=== PATIENT | female | born 1985 | race Caucasian/White ===

== ENCOUNTER 2017-07-25 20:09 | Emergency (ER) | payer MEDICAID, SELFPAY ==
[2017-07-25 20:10] VITALS: BP 120/83; PULSE 81; RESP 14; TEMP 36.9; O2SAT 99; BMI 26.4
--- NOTE | 2017-07-25 22:33 | ED.VISSUMM ---
- ER Visit Summary Date of Service: 07/25/17 Chief Complaint: Finger infection History of Present Illness: The patient is a 32 F with a left ring finger infection that started 2 days ago. Patient had a hangnail and was biting her nails. She tried to pop the area of infection, but nothing seems to help. No history of diabetes or immune compromise. No other medical issues. Physical Examination: Signs unremarkable. Left ring finger shows induration and swelling over the ulnar side of the nailbed. No other pertinent findings. Test Results: None indicated Emergency Department Course and Treatment: Consistent with paronychia. Digital block was performed. I&D performed. Patient placed on Bactrim. Follow-up with primary care. Return for new or worsening issues. Treatment Plan: As above Disposition: Discharged Impression: 1. Paronychia left ring finger This note was generated with [employer] dictation software. It may contain incorrect words, spelling, and punctuation that were not noted in review of the chart prior to signing ED Disposition - Plan for ED Patient: Chief Complaint: Upper Extremity Injury Referrals: Nickie Scherer MD [Primary Care Provider] -
--- NOTE | 2017-07-25 22:34 | ED.DEP ---
ED Disposition - Plan for ED Patient: Chief Complaint: Upper Extremity Injury Instructions: ED Fingernail Infec Prescriptions: Smz/Tmp Ds [Bactrim Ds] 1 tab PO BID #14 tab Referrals: Nickie Scherer MD [Primary Care Provider] -
[2017-07-25] MEDS: Smz/Tmp Ds Tablet 1 TABLET PO (23:02)
[2017-07-25 23:05] VITALS: RESP 18
== END 2017-07-25 23:06 | disposition home or self-care (01) ==
LOC: ED 22:28
PROVIDERS: Emergency Provider Emergency Medicine; Family Provider Internal Medicine; PCP Internal Medicine
DX: L03.012 Cellulitis of left finger (principal); Z72.0 Tobacco use
CPT/HCPCS: 10060; 99283

== ENCOUNTER 2017-12-16 10:54 | Emergency (ER) | payer MEDICAID, SELFPAY ==
[2017-12-16 10:55] VITALS: BP 101/67; PULSE 116; RESP 16; TEMP 36; O2SAT 100; BMI 22.8
--- NOTE | 2017-12-16 11:09 | ED.VISSUMM ---
- ER Visit Summary Date of Service: 12/16/17 Chief Complaint: Nausea and vomiting History of Present Illness: The patient is a 32 F who woke during the night 4 days ago with nausea, vomiting, and diarrhea. Her last episode of vomiting was on the . Patient still has body aches and nausea. Patient has been able to drink water. Today she feels lightheaded when she stands. She is complaining of generalized body aches. She has not had nausea or vomiting. She denies anyone else at home being ill with similar. Patient has had prior cholecystectomy secondary to gallstone pancreatitis. Physical Examination: Blood pressure is 101/67, temperature 96.8, heart rate 116, respiratory rate 16, pulse ox 100% on room air. Patient is lying in bed. She appears ill but no acute distress. Heart is tachycardic and regular. Lung sounds are clear. Abdomen is soft with no focal tenderness. Hypoactive bowel sounds are present. Test Results: CBC is unremarkable. Chemistry studies normal. LFTs showed total bili of 0.44, ALT of 353, AST of 127. Urinalysis is significant only for 15 ketones. test negative. Emergency Department Course and Treatment: Patient is given IV fluids, Zofran, Toradol. On review of prior labs she has not had elevation in her LFTs similar to this in the past. She has had cholecystectomy. She has no focal tenderness on abdominal exam. Hepatitis panel is sent. At this time patient is tolerating p.o. She will be discharged with a prescription for Zofran. If her hepatitis panel returns abnormal she will receive a phone call. Patient is advised to follow-up with her primary care physician for repeat testing. Treatment Plan: [] Disposition: Discharge Impression: 1. Vomiting, improved 2. Elevated LFTs This note was generated with [employer] dictation software. It may contain incorrect words, spelling, and punctuation that were not noted in review of the chart prior to signing ED Disposition - Plan for ED Patient: Chief Complaint: General Illness Referrals: Nickie Scherer MD [Primary Care Provider] -
--- NOTE | 2017-12-16 11:12 | ED.DCSUM_ITS ---
- ER Visit Summary Date of Service: 12/16/17 Chief Complaint: Nausea and vomiting History of Present Illness: The patient is a 32 F who woke during the night 4 days ago with nausea, vomiting, and diarrhea. Her last episode of vomiting was on the . Patient still has body aches and nausea. Patient has been able to drink water. Today she feels lightheaded when she stands. She is complaining of generalized body aches. She has not had nausea or vomiting. She denies anyone else at home being ill with similar. Patient has had prior cholecystectomy secondary to gallstone pancreatitis. Physical Examination: Blood pressure is 101/67, temperature 96.8, heart rate 116 , respiratory rate 16, pulse ox 100% on room air. Patient is lying in bed. She appears ill but no acute distress. Heart is tachycardic and regular. Lung sounds are clear. Abdomen is soft with no focal tenderness. Hypoactive bowel sounds are present. Test Results: CBC is unremarkable. Chemistry studies normal. LFTs showed total bili of 0.44, ALT of 353, AST of 127. Urinalysis is significant only for 15 ketones. test negative. Emergency Department Course and Treatment: Patient is given IV fluids, Zofran, Toradol. On review of prior labs she has not had elevation in her LFTs similar to this in the past. She has had cholecystectomy. She has no focal tenderness on abdominal exam. Hepatitis panel is sent. At this time patient is tolerating p.o. She will be discharged with a prescription for Zofran. If her hepatitis panel returns abnormal she will receive a phone call. Patient is advised to follow-up with her primary care physician for repeat testing. Treatment Plan: [] Disposition: Discharge Impression: 1. Vomiting, improved 2. Elevated LFTs This note was generated with [employer] dictation software. It may contain incorrect words, spelling, and punctuation that were not noted in review of the chart prior to signing ED Disposition - Plan for ED Patient: Chief Complaint: General Illness Referrals: Nickie Scherer MD [Primary Care Provider] -
[2017-12-16] MEDS: 0.9% Normal Saline 1,000 ML 1000 ML IV (11:16)
[2017-12-16] MEDS: Ketorolac 30 MG/ML Syringe IV (11:18)
[2017-12-16] MEDS: Ondansetron 4 MG/2 ML Vial IV (11:19)
[2017-12-16 11:38] LABS: Mucous, Urine 0 SEEN /hpf (<or=2+); Red Blood Cells-Urine 0 SEEN /hpf (0-5); White Blood Cells 0 SEEN /hpf (0-5)
[2017-12-16 11:40] LABS: Color, Urine Yellow (Yellow); Glucose, Dipstick Normal (Normal); Ketone-Dipstick 15 mg/dl (Negative); Leukocyte Esterase-Dipstick 25 /ul (Negative); Nitrite-Dipstick Negative (Negative); Occult Blood-Urine 25 /ul (Negative); Protein-Dipstick 100 mg/dl (Negative); Specific Gravity, Urine 1.015 (1.002-1.030); Urine Clarity Sl. Cloudy (Clear); Urine Urobilinogen 8 mg/dl (Normal)
[2017-12-16 11:42] LABS: Urine Bilirubin Dipstick 3 mg/dL (Negative)
[2017-12-16 11:47] LABS: Amorphous Sediment 1+; Bacteria RARE /hpf (None Seen); Squamous Epithelial Cells - UA 0-5 SEEN /hpf (5-10); Transitional Epithelial - Ur 5-10 SEEN /hpf (0-5)
[2017-12-16 11:48] LABS: Fine Granular Cast- Urine 0-5 SEEN /lpf (0-5)
[2017-12-16 12:03] LABS: AST(SGOT) 127 U/L (15-37); Alanine Aminotransfer ALT/SGPT 353 U/L (13-56); Alkaline Phosphatase 98 U/L (45-117); Anion Gap 11 (5-15); BUN 18 mg/dL (7-18); BUN/Creat Ratio 20.5 RATIO (10-20); Bilirubin, Direct 0.44 mg/dL (0.00-0.30); Calcium,Total 8.2 mg/dL (8.5-10.1); Chloride 105 mmol/L (98-107); Creatinine, Serum 0.88 mg/dL (0.55-1.02); EST Glomerular Filtration Rate 80 mL/min (>60); Est Glom Filt Rate - Afr Amer 96 mL/min (>60); Estimated Creatinine Clearance 93.44 ml/min; Globulin 3.2 g/dL (2.2-4.2); Glucose 98 mg/dL (74-106); Lipase 46 U/L (73-393); Potassium 3.5 mmol/L (3.5-5.1); Protein, Total 6.2 g/dL (6.4-8.2); Sodium Level 138 mmol/L (136-145)
[2017-12-16] MEDS: 0.9% Normal Saline 1,000 ML 150 ML IV (12:12)
[2017-12-16 12:15] VITALS: BP 107/71; PULSE 61; RESP 12; O2SAT 100
[2017-12-16 12:28] LABS: Pregnancy, Serum, hCG Quali. NEGATIVE Negative (0-9 Nonpreg)
[2017-12-16 13:35] LABS: Absolute Lymphocyte Count 0.99 X10^3/ul (0.83-4.51); Absolute Neutrophil Count 6.6 X10^3/uL (2.0-7.7); Basophil# 0.01 X10^3/uL; Basophil% 0.1 % (0-1); Eosinophil# 0.03 X10^3/uL; Eosinophils% 0.4 % (0-5); Hematocrit 35.6 % (37-47); Hemoglobin 12.2 g/dl (12.0-15.0); Lymphocyte # 0.99 X10^3/ul (4.0); Lymphocyte % 12.2 % (19-41); Mean Corp Hgb Conc 34.3 g/gl (32-36); Mean Corpuscular Hgb 27.1 pg (27.0-32.0); Mean Corpuscular Volume 79.1 fL (81-99); Mean Platelet Vol. 9.9 fl (6.2-12.0); Monocyte# 0.51 X10^3/uL; Monocyte% 6.3 % (0-10); Neutrophil # 6.55 X10^3/uL (2.7-7.7); Neutrophil % 80.8 % (47-70); Platelet Count 105 K/mm3 (150-450); RBC Distribution Width CV 12.9 % (11.6-14.6); RBC Distribution Width SD 36.6 fl (35.1-43.9); White Blood Count 8.1 K/mm3 (4.4-11.0)
[2017-12-16 13:38] LABS: Differential Indicated SCAN CRITERIA MET; POSITIVE COUNT NO; POSITIVE DIFFERENTIAL NO; POSITIVE MORPHOLOGY YES
--- NOTE | 2017-12-16 13:58 | ED.DEP ---
ED Disposition - Plan for ED Patient: Disposition: Home or Assisted Living Chief Complaint: General Illness Instructions: ED Gastroenteritis Non Infec Prescriptions: Ondansetron [Zofran Odt] 4 mg PO Q8H PRN PRN #10 tablet PRN Reason: Nausea Referrals: Nickie Scherer MD [Primary Care Provider] - 1 Week
[2017-12-16 14:12] VITALS: BP 112/74; PULSE 72; RESP 16; O2SAT 99
[2017-12-18 16:07] LABS: HEPATITIS B SURFACE AG Negative (Negative); Hepatitis A AB, Total Negative (Negative); Hepatitis A IgM Antibody Negative (Negative); Hepatitis B Core AB IgM Negative (Negative); Hepatitis B Core Ab Total Negative (Negative); Hepatitis C Ab <0.1 s/co ratio (0.0-0.9)
[2017-12-19 11:11] LABS: Hep B Surface Antibodies Non Reactive (.)
== END 2017-12-16 14:15 | disposition home or self-care (01) ==
PROVIDERS: Emergency Provider Emergency Medicine; Family Provider Internal Medicine; PCP Internal Medicine
DX: R11.2 Nausea with vomiting, unspecified (principal); R94.5 Abnormal results of liver function studies; Z72.0 Tobacco use
CPT/HCPCS: 80048; 80076; 81001; 83690; 84703; 85025; 86704; 86705; 86706; 86708; 86709; 86803; 87340; 96361; 96374; 96375; 99283; J7030; J2405

== ENCOUNTER 2018-11-28 19:42 | Emergency (ER) | payer MEDICAID, SELFPAY ==
[2018-11-28 19:44] VITALS: BP 112/82; PULSE 86; RESP 14; TEMP 36.6; O2SAT 99; BMI 23.7
--- NOTE | 2018-11-28 21:01 | ED.VISSUMM ---
- ER Visit Summary Date of Service: 11/28/18 Chief Complaint: Laceration left foot History of Present Illness: The patient is a 33 F presenting with laceration to left foot. Patient states she was carrying a knife and dropped it and it landed on her left foot. Her tetanus is up-to-date. She denies other injuries. Physical Examination: Vitals are stable. Patient is afebrile. Alert no acute distress. HEENT exam is unremarkable. Neck is supple. Lungs are clear and equal bilaterally. Heart is regular rate and rhythm. Extremities 1 cm laceration dorsal left foot. Neurovascularly intact distally. Skin is warm and dry. No focal neurologic deficit. Remainder of exam is unremarkable. Emergency Department Course and Treatment: Wound is irrigated. Anesthetized with lidocaine. 2, 5-0 simple sutures were placed. Patient tolerated this well. Advised wound care instructions. Advised to follow-up with primary care physician. Advised return to ED for worsening complaints. Disposition: Discharge home Impression: Left foot laceration, laceration repair This note was generated with [employer] dictation software. It may contain incorrect words, spelling, and punctuation that were not noted in review of the chart prior to signing ED Disposition - Plan for ED Patient: Instructions: LACERATION, Foot Referrals: Nickie Scherer MD [Primary Care Provider] -
--- NOTE | 2018-11-28 21:23 | ED.DEP ---
ED Disposition - Plan for ED Patient: Instructions: LACERATION, Foot Referrals: Nickie Scherer MD [Primary Care Provider] -
[2018-11-28 21:32] VITALS: BP 114/80; PULSE 78; RESP 16; O2SAT 98
[2018-11-28 21:39] VITALS: BP 114/80; PULSE 78; RESP 16; O2SAT 98
== END 2018-11-28 21:40 | disposition home or self-care (01) ==
LOC: ED 20:21
PROVIDERS: Emergency Provider Emergency Medicine; Family Provider Internal Medicine; PCP Internal Medicine
DX: S91.312A Laceration without foreign body, left foot, initial encounter (principal); W26.0XXA Contact with knife, initial encounter; Y93.89 Activity, other specified; Z72.0 Tobacco use
CPT/HCPCS: 12001; 99282

== ENCOUNTER 2020-11-14 20:15 | Emergency (ER) | payer MEDICAID, SELFPAY ==
[2020-11-14 20:16] VITALS: BP 133/89; PULSE 100; RESP 15; TEMP 36.7; O2SAT 100; BMI 23.6
== END 2020-11-14 21:00 | disposition left against medical advice (07) ==
LOC: ED 21:03
PROVIDERS: PCP Internal Medicine
DX: Z53.21 Procedure and treatment not carried out due to patient leaving prior to being seen by health care provider (principal)

== ENCOUNTER 2021-03-26 16:55 | Emergency (ER) | payer MEDICAID, SELFPAY ==
[2021-03-26 16:57] VITALS: BP 156/141; PULSE 120; RESP 18; TEMP 35.9; O2SAT 99; BMI 24.3
[2021-03-26 17:46] LABS: Absolute Lymphocyte Count 1.42 X10^3/uL (0.83-4.51); Basophil# 0.01 X10^3/uL; Basophil% 0.1 % (0-1); Eosinophil# 0.01 X10^3/uL; Eosinophils% 0.1 % (0-5); Hematocrit 42.1 % (37-47); Hemoglobin 14.1 g/dL (12.0-15.0); Lymphocyte # 1.42 X10^3/ul (0.83-4.51); Lymphocyte % 20.7 % (19-41); Mean Corp Hgb Conc 33.5 g/dL (32-36); Mean Corpuscular Hgb 26.3 pg (27.0-32.0); Mean Corpuscular Volume 78.4 fL (81-99); Mean Platelet Vol. 9.7 fl (6.2-12.0); Monocyte# 0.39 X10^3/uL; Monocyte% 5.7 % (0-10); NRBC Flagged by Analyzer 0 % (0-5); Neutrophil % 73.1 % (47-70); Platelet Count 203 K/mm3 (150-450); RBC Distribution Width CV 11.7 % (11.6-14.6); Red Blood Count 5.37 M/mm3 (4.2-5.4); White Blood Count 6.9 K/mm3 (4.4-11.0)
[2021-03-26 17:55] LABS: Internal QC Validated? YES +Cl - CLEAR BKGD; Pregnancy, Serum, hCG Quali. NEGATIVE Negative
[2021-03-26 17:59] LABS: Anion Gap 9 (5-15); BUN 13 mg/dL (7-18); Calcium,Total 9.3 mg/dL (8.5-10.1); Chloride 105 mmol/L (98-107); Creatinine, Serum 0.93 mg/dL (0.55-1.02); EST Glomerular Filtration Rate 73 mL/min (>60); Est Glom Filt Rate - Afr Amer 88 mL/min (>60); Estimated Creatinine Clearance 85.98 ml/min; Glucose 104 mg/dL (74-106); Potassium 3.7 mmol/L (3.5-5.1); Sodium Level 138 mmol/L (136-145)
--- NOTE | 2021-03-26 19:43 | ED.RN ---
PT STATES SHE CANNOT WAIT ANY LONGER BECAUSE SHE DOESN'T HAVE A RIDE HOME. IV DC'D CANNULA INTACT. PT INSTRUCTED TO RETURN IF SHE CHNAGED HER MIND
== END 2021-03-26 19:34 | disposition left against medical advice (07) ==
LOC: ED 19:54
PROVIDERS: PCP Internal Medicine
DX: Z53.21 Procedure and treatment not carried out due to patient leaving prior to being seen by health care provider (principal)
CPT/HCPCS: 80048; 84703; 85025; A4216

== ENCOUNTER 2021-04-15 00:23 | Emergency (ER) | payer MEDICAID, SELFPAY ==
[2021-04-15 00:24] VITALS: BP 129/98; PULSE 116; RESP 16; TEMP 36.4; O2SAT 99; BMI 23.6
[2021-04-15] MEDS: Lidocaine/Epi/Tetracaine 50 ML 1 APPLIC TOPICAL (05:52)
[2021-04-15] MEDS: Diphth,Pertuss(Acell),Tet Vac 0.5 ML Vial IM (06:05)
--- NOTE | 2021-04-15 06:05 | EX.ED.UPPERE ---
HPI History of Present Illness Chief Complaint: Laceration Informant: patient Onset/Context/Timing Onset: Today (JPTA) Context: Sudden Onset Timing: Continuous Quality of Pain: - (sore) Location: R wrist Current Severity: Mild Maximum Severity: Moderate Worsened by: palpation Relieved by: leaving alone Associated Symptoms Associated Symptoms: Negative for Parasthesia, Weakness and Loss of Funtion Narrative Narrative: [id number] female was washing a dish that broke and she accidentally cut her right wrist in the process. Tetanus Immunization: >10 years [facility] Medical History GERD (gastroesophageal reflux disease) Mid back pain, chronic Medical History no medical history Home Medications NK 04/15/21 [History Last Taken Unknown] Allergy/AdvReac Type Severity Reaction Status Date / Time hydrocodone bitartrate Allergy Other Verified 04/15/21 00:25 [From Vicodin] propoxyphene napsylate Allergy Other Verified 04/15/21 00:25 [From Darvocet-N] Surgical History no surgical history Social History Smoking Status: Current every day smoker tobacco type: cigarettes ROS ROS ED Constitutional Constitutional ED: Denies chills or fever(s) Musculoskeletal Musculoskeletal: Reports extremity pain; Denies neck pain Integumentary Reports laceration and wounds; Denies Abrasions or rash Neurologic Neurologic: Denies paresthesias or weakness EXAM Physical Exam Const Vital Signs: 04/15/21 00:24 Temperature 97.5 F L Temperature Source Temporal Pulse Rate 116 H Respiratory Rate 16 Blood Pressure 129/98 H Blood Pressure Mean 108 Pulse Ox 99 Oxygen Delivery Method Room Air Positive well nourished and well developed General Appearance ED: well developed and NAD Neck full ROM and supple Back/Spine normal ROM and normal to inspection Extremity full ROM Extremity Narrative: Laceration volar ulnar aspect right wrist. Full range of motion, all tendon function intact, FDP, FDS. No bony tenderness. Neuro oriented x3, no focal motor deficits and no sensory deficits noted Sensorium / Orientation: alert Psych mental status grossly normal and thought process normal Skin Skin Narrative: 3.5 cm full-thickness laceration down to the fascia, the tendon beyond the fascia is visible but the fascia has not been penetrated. It is at the volar aspect of the right wrist, ulnar side. It is clean appearing, linear. Rashes: no rashes MDM MDM MDM Narrative Medical decision making narrative: Tetanus was updated. Laceration was repaired. Dressed with bacitracin given appropriate discharge instructions and reasons/time to return. Procedures Lacerations Right wrist: Length: 3.5 cm Depth: Sub Q Shape: Linear Prep: Sterile Conditions and Chlorhexadine Laceration repair: Lidocaine (Topically and 1 cc of plain 1% injected) and Local Irrigated (ml): 50 Number of Sutures/[place]: 4 Suture Information: Ethilon, Simple and 4-0 Discharge Plan Triage Chief Complaint: Laceration ED Provider: Hill Pereira Dx/Rx/DC Orders Clinical Impression: Laceration of wrist, right, [id number] (DTP) vaccination Instructions: ED Laceration: All Closures Prescriptions: No Action NK RF: 0 Primary Care Provider: Nickie Scherer Referrals: Nickie Scherer MD [Primary Care Provider] - 10 Day for suture removal (Or ER/urgent care) Disposition Disposition: Home, Self Care
[2021-04-15] MEDS: Lidocaine 1% (20 ml mdv) 20 ML Vial INFILT (06:06)
== END 2021-04-15 06:18 | disposition home or self-care (01) ==
PROVIDERS: Emergency Provider Emergency Medicine; PCP Internal Medicine
DX: S61.511A Laceration without foreign body of right wrist, initial encounter (principal); W45.8XXA Other foreign body or object entering through skin, initial encounter; W22.8XXA Striking against or struck by other objects, initial encounter; Y93.G1 Activity, food preparation and clean up; Y92.9 Unspecified place or not applicable; Y99.9 Unspecified external cause status; Z23 Encounter for immunization; K21.9 Gastro-esophageal reflux disease without esophagitis; F17.210 Nicotine dependence, cigarettes, uncomplicated
CPT/HCPCS: 12002; 90471; 90715; 99284

== ENCOUNTER 2023-02-20 15:58 | Emergency (ER) | payer MEDICAID, SELFPAY ==
[2023-02-20 16:01] VITALS: BP 130/89; PULSE 109; RESP 18; TEMP 36.2; O2SAT 100; BMI 28.3
--- NOTE | 2023-02-20 16:18 | EX.ED.DYSGE1 ---
HPI History of Present Illness Chief Complaint: Chest Other Detail of Chief Complaint: Painful lump on chest Informant: patient Narrative Narrative: Patient presents with a painful lump on her chest. She noted a small pea-sized lump on her chest wall for the past 5 years. It just recently became erythematous and painful and seems to be growing in size. Patient has an appointment to see her PCP later this week but due to increased pain and growing redness she presents to the emergency room. She denies fever. [facility] Medical History GERD (gastroesophageal reflux disease) Mid back pain, chronic Home Medications cephalexin 500 mg capsule 500 mg PO Q6 #40 CAPSULES 02/20/23 [Rx Last Taken Unknown] sulfamethoxazole 800 mg-trimethoprim 160 mg tablet (Bactrim DS) 1 tab PO BID #20 tabs 02/20/23 [Rx Last Taken Unknown] Allergy/AdvReac Type Severity Reaction Status Date / Time hydrocodone bitartrate Allergy Other Verified 02/20/23 16:00 [From Vicodin] propoxyphene napsylate Allergy Other Verified 02/20/23 16:00 [From Darvocet-N] Social History Smoking Status: Current every day smoker tobacco type: cigarettes ROS ROS ED Constitutional Constitutional ED: Denies chills or fever(s) Eyes Eyes: Denies discharge from eye(s) ENT ENT ED: Denies discharge from eye(s) or sore throat Cardiovascular Cardiovascular: Reports chest pain; Denies palpitations Respiratory/Chest Respiratory/Chest: Denies cough or dyspnea Gastrointestinal Gastrointestinal: Denies abdominal pain, nausea or vomiting Integumentary Reports abscess; Denies Abrasions or rash Neurologic Neurologic: Denies headache(s) or weakness Psychiatric Psychiatric: Denies anxiety or depression Allergic/Immunologic Allergic/Immunologic ED: Denies lip swelling or urticaria EXAM Physical Exam Const Vital Signs: 02/20/23 16:01 Temperature 97.2 F L Temperature Source Temporal Pulse Rate 109 H Respiratory Rate 18 Blood Pressure 130/89 H Blood Pressure Mean 102 Pulse Ox 100 Oxygen Delivery Method Room Air Positive well nourished and well developed General Appearance ED: well developed HEENT Reports moist mucous membranes Eyes PERRL and EOMs intact bilaterally Neck Neck Narrative: Soft lipoma noted to the left lateral posterior neck. No overlying skin change. Chest Wall Chest Narrative: Sebaceous cyst noted on the right chest wall with surrounding erythema measuring approximately 7 cm in diameter. Resp normal respiratory effort and clear to auscultation bilaterally Cardio regular rate and regular rhythm GI non-tender Palpation: soft Extremity normal to inspection Neuro oriented x3 and no sensory deficits noted Motor Exam: strength 5/5 throughout Psych mental status grossly normal MDM MDM MDM Narrative Medical decision making narrative: Chest wound is cleansed. 1 cc 1% lidocaine is infused locally. Stab incision with a #11 blade with return of pus. Loculations were broken up. Wound is cleansed, antibiotic ointment placed, and dressing applied. Patient will be placed on Bactrim and Keflex, first dose given here. She will follow-up with her doctors visit this coming week for a wound check. Discharge Plan Triage Chief Complaint: Chest Other ED Provider: Kelly Lopez Dx/Rx/DC Orders Clinical Impression: Cutaneous abscess, Sebaceous cyst Instructions: ED Abscess Incision And Drainage, ED Cellulitis Prescriptions: New sulfamethoxazole-trimethoprim [Bactrim DS] 800-160 mg tablet 1 tab PO BID Qty: 20 0RF cephalexin 500 mg capsule 500 mg PO Q6 Qty: 40 0RF Primary Care Provider: Nickie Scherer Referrals: Nickie Scherer MD [Primary Care Provider] - Keep [facility] appointment Disposition Disposition: Home, Self Care
[2023-02-20] MEDS: Smz/Tmp Ds Tablet 1 TABLET PO (16:24)
[2023-02-20] MEDS: Lidocaine 1% (20 ml mdv) 20 ML Vial INFILT (16:24)
[2023-02-20] MEDS: Cephalexin 500 MG Capsule PO (16:24)
== END 2023-02-20 16:42 | disposition home or self-care (01) ==
PROVIDERS: Emergency Provider Emergency Medicine; PCP Internal Medicine; Visit Provider Emergency Medicine
DX: L02.213 Cutaneous abscess of chest wall (principal); L72.3 Sebaceous cyst; F17.210 Nicotine dependence, cigarettes, uncomplicated
CPT/HCPCS: 10060; 99282

== ENCOUNTER 2023-04-07 03:29 | Emergency (ER) | payer MEDICAID, SELFPAY ==
[2023-04-07 03:30] VITALS: BP 160/96; PULSE 95; RESP 18; TEMP 36.6; O2SAT 96; BMI 29.9
--- NOTE | 2023-04-07 03:55 | EX.ED.DYSGE1 ---
HPI History of Present Illness Chief Complaint: Headache PFSH PFS Medical History GERD (gastroesophageal reflux disease) Mid back pain, chronic Home Medications cephalexin 500 mg capsule 500 mg PO Q6 #40 CAPSULES 02/20/23 [Rx Last Taken Unknown] sulfamethoxazole 800 mg-trimethoprim 160 mg tablet (Bactrim DS) 1 tab PO BID #20 tabs 02/20/23 [Rx Last Taken Unknown] metoclopramide HCl 5 mg tablet (Reglan) 5 mg PO Q8H PRN PRN headache 7 days #21 tabs 04/07/23 [Rx Last Taken Unknown] Allergy/AdvReac Type Severity Reaction Status Date / Time hydrocodone bitartrate Allergy Other Verified 04/07/23 03:33 [From Vicodin] propoxyphene napsylate Allergy Other Verified 04/07/23 03:33 [From Darvocet-N] Social History Smoking Status: Current every day smoker tobacco type: cigarettes EXAM Physical Exam Const Vital Signs: 04/07/23 03:30 Temperature 97.9 F Temperature Source Temporal Pulse Rate 95 Respiratory Rate 18 Blood Pressure 160/96 H Blood Pressure Mean 117 Pulse Ox 96 Oxygen Delivery Method Room Air MDM MDM MDM Narrative Medical decision making narrative: HISTORY OF PRESENT ILLNESS: 37year old male presents with headache. Notes gradual onset of right-sided headache that started 2 hours prior to arrival. Patient denies sudden onset or thunderclap headache, denies maximal intensity within 1 minute, vomiting, neck pain or stiffness, changes in vision, fever, history malignancy, syncope, seizures. REVIEW OF SYSTEMS: All other systems reviewed and are negative except as noted in the history of present illness. At least 10 review of systems reviewed and are negative except as noted in history of present illness. PHYSICAL EXAM: Nursing triage notes reviewed, Vital signs reviewed Constitutional: please see mdm HENT: MMM Eyes: Pupils equal round and reactive to light, Extraocular muscles intact Neck: No stridor, no JVD, full neck ROM Lungs: Clear to auscultation, No wheezing or rales. No increased work of breathing, no conversational dyspnea, no accessory muscle use, no nasal flaring. No respiratory distress noted Heart: Regular rate and rhythm, No murmurs, No rubs and No gallops, 2+ distal pulses (radial, femoral, posterior tibial) in all extremities Abdomen: Soft, there is no tenderness, rigidity, rebound or guarding, no obvious peritoneal signs, no palpable pulsatile abdominal masses, no auscultated abdominal bruit : No CVAT Extremities: No edema Neuro: Alert and oriented x3, neuro exam at baseline, cranial nerves II through XII are intact. No pain with extraocular muscle movement. There is negative test of skew. Normal speech. 5 of 5 strength in upper and lower extremities in flexion extension. Intact sensation to light touch in upper and lower extremity dermatomes. No truncal or extremity ataxia. No dysdiadochokinesia. Normal gait. 2+ reflexes. No meningeal signs. Negative Babinski. NIH of 0 Skin: No rash or lesions noted MEDICAL DECISION MAKING: Chief Complaint: Headache External records reviewed: Prior imaging studies reviewed: CT scan of the brain from 2017 shows no acute intracranial process Factors affecting care: Migraines Social determinants of health: none History obtained from others: none Consults: none ALL IMAGES (IF OBTAINED) HAVE BEEN PERSONALLY REVIEWED AND INTERPRETED BY MYSELF. MDM Narrative: Patient was hemodynamically stable, afebrile, nontoxic-appearing. Exam without focal neurologic deficits. Age of 1. Given patient's headache started within the 6-hour window and is different from prior headaches did obtain a CT scan of the head. I considered the following differential diagnosis: Subarachnoid hemorrhage, epidural hematoma, ICH, meningitis, carotid artery dissection, primary headache (primary headache, migraine, tension headache, cluster headache) CT scan showed no evidence of acute intracranial normality including subarachnoid hemorrhage. After Reglan the patient was reevaluated: The patient looks great and is in no significant objective discomfort currently. The patient's headache is non-specific. Exam is unremarkable. The patient is in no distress and the patient?s neurological exam is non-focal, neck is supple and without meningismus. The headache is not consistent with meningitis or infection, nor is it consistent with intracranial bleed (SAH etc.), carotid dissection, nor mass by history and examination. Medication and outpatient follow-up was instructed. The patient was instructed to return as needed or if symptoms changed or worsened, fever developed or inability to tolerate fluids. The patient agreed with plan. The patient and/or family, caregivers express understanding. The patient and/or family, caregivers agrees with the plan. Total critical care time today provided was at least 0 minutes. This excludes separately billable procedures. Critical care time (if documented) is secondary to the patient having high probability of clinically significant/life threatening deterioration in the patient's condition which required my urgent intervention. Shared decision making: I will have a discussion with the patient and or visitors regarding risk/benefits of further testing or admission. They will be made aware of of the risk/benefits inherent in this decision they will be given the opportunity to voice understanding. Impression: 1. Acute headache Disposition: Discharge home Radiography Diagnostic Testing: Clinical Impression(s) from Imaging Studies Brain CT 04/07/23 04:02 IMPRESSION: No demonstrated acute intracranial process. Electronically Signed: Isaac Dumont MD at 6:04 EST Reading Location ID and State: [facility] / [place] , Service support , Discharge Plan Triage Chief Complaint: Headache ED Provider: Cosmo Swartz Dx/Rx/DC Orders Instructions: ED, Migraine (Classical) Prescriptions: New metoclopramide HCl [Reglan] 5 mg tablet 5 mg PO Q8H PRN PRN (Reason: headache) 7 Days Qty: 21 0RF No Action sulfamethoxazole-trimethoprim [Bactrim DS] 800-160 mg tablet 1 tab PO BID Qty: 20 0RF cephalexin 500 mg capsule 500 mg PO Q6 Qty: 40 0RF Primary Care Provider: Nickie Scherer Referrals: Nickie Scherer MD [Primary Care Provider] - Activity Restrictions/Additional Instructions: Thank you for trusting us with your care today! Please take Tylenol (2 pills, 650 mg), ibuprofen (2 pills, 400 mg) every 6 hours as needed for pain and fever control. Take Reglan as needed for headache. Please return to the emergency department if your symptoms change or worsen. Please follow with your primary care physician for further outpatient evaluation and management. Disposition Disposition: Home, Self Care
--- NOTE | 2023-04-07 04:02 | CT_ITS ---
EXAM: CT HEAD WITHOUT INTRAVENOUS CONTRAST CLINICAL INDICATION: SALAZAR r/o SAH, ICH SALAZAR r/o SAH, ICH TECHNIQUE: Multiple axial images were obtained of the head without intravenous contrast. This CT exam was performed using one or more of the following dose reduction techniques: automated exposure control, adjustment of the mA and/or kV according to patient size, and/or use of iterative reconstruction technique. RADIATION DOSE: CTDIvol = 44.99 mGy, DLP = 796.11 mGy-cm COMPARISON: No relevant prior studies available. FINDINGS: BRAIN AND EXTRA-AXIAL SPACES: Unremarkable. No intra- or extra-axial hemorrhage. No evidence of acute infarct. No intracranial mass or mass effect. There is preservation of the rios/white matter interface. Posterior fossa structures are unremarkable. Ventricles are appropriate for age. No hydrocephalus. Basal cisterns are patent. BONES/JOINTS: Unremarkable. No discrete lytic or blastic abnormalities. SINUSES: There are polyps or retention cysts in the maxillary sinuses bilaterally. There is mild mucoperiosteal thickening in bilateral ethmoid air cells. There is no evidence for acute sinusitis. MASTOID AIR CELLS: Unremarkable. Clear. ORBITS: Visualized globes, extraocular muscles, optic nerves and retrobulbar fat appear unremarkable. CT/Brain/Head without Contrast IMPRESSION: No demonstrated acute intracranial process. Electronically Signed: Isaac Dumont MD at 6:04 EST Reading Location ID and State: [facility] / [place] , Service support ,
[2023-04-07] MEDS: Metoclopramide 10 MG/2 ML Vial 5 MG IV (04:07)
[2023-04-07] MEDS: Acetaminophen 325 MG Tablet 650 MG PO (04:08)
[2023-04-07] MEDS: 0.9% Normal Saline (500mL Bag) 500 ML 999 ML IV (04:15)
[2023-04-07 06:43] VITALS: BP 142/62; PULSE 86; RESP 18; O2SAT 98
== END 2023-04-07 06:45 | disposition home or self-care (01) ==
PROVIDERS: Emergency Provider Emergency Medicine; PCP Internal Medicine; Visit Provider Emergency Medicine
DX: R51.9 Headache, unspecified (principal); F17.210 Nicotine dependence, cigarettes, uncomplicated
CPT/HCPCS: 70450; 96374; 99282; J7030; A4216

== ENCOUNTER 2023-10-03 09:41 | Emergency (ER) | payer MEDICAID, SELFPAY ==
[2023-10-03 09:42] VITALS: BP 125/88; PULSE 73; RESP 16; TEMP 36.4; O2SAT 99; BMI 34.2
--- NOTE | 2023-10-03 09:53 | EX.ED.UPPERE ---
HPI History of Present Illness Chief Complaint: Upper Extremity Injury Detail of Chief Complaint: Right shoulder pain Informant: patient Onset/Context/Timing Onset: Yesterday Context: Gradual Onset Narrative Narrative: Patient presents secondary to right shoulder pain. She denies any known injury, but does state that she was in the pool yesterday and hitting a beach ball around. She does not remember 1 particular motion where she felt sudden pain. She complains of significant pain when trying to abduct her right arm. She is right-hand dominant. No paresthesias. [facility] Medical History Cholecystectomy planned GERD (gastroesophageal reflux disease) Mid back pain, chronic Home Medications ?Medication ?Instructions ?Recorded ?Last Taken ?Type cephalexin 500 mg capsule 500 mg PO Q6 #40 CAPSULES 02/20/23 Unknown Rx sulfamethoxazole 800 1 tab PO BID #20 tabs 02/20/23 Unknown Rx mg-trimethoprim 160 mg tablet (Bactrim DS) metoclopramide HCl 5 mg tablet 5 mg PO Q8H PRN PRN headache 7 04/07/23 Unknown Rx (Reglan) days #21 tabs ibuprofen 600 mg tablet 600 mg PO Q8H PRN PRN pain #20 10/03/23 Unknown Rx TABLETS Allergy/AdvReac Type Severity Reaction Status Date / Time hydrocodone bitartrate (From Allergy Other Verified 10/03/23 09:51 Vicodin) propoxyphene napsylate (From Allergy Other Verified 10/03/23 09:51 Darvocet-N) Social History Smoking Status: Current every day smoker tobacco type: cigarettes ROS ROS ED Constitutional Constitutional ED: Denies chills or fever(s) Eyes Eyes: Denies discharge from eye(s) ENT ENT ED: Denies discharge from eye(s), rhinorrhea or sore throat Cardiovascular Cardiovascular: Denies chest pain Respiratory/Chest Respiratory/Chest: Denies cough or dyspnea Gastrointestinal Gastrointestinal: Denies abdominal pain, diarrhea, nausea or vomiting Musculoskeletal Musculoskeletal: Reports extremity pain; Denies back pain Integumentary Denies Abrasions or rash Neurologic Neurologic: Denies headache(s) or weakness Psychiatric Psychiatric: Denies anxiety or depression Allergic/Immunologic Allergic/Immunologic ED: Denies lip swelling or urticaria EXAM Physical Exam Const Vital Signs: 10/03/23 09:42 Temperature 97.5 F L Temperature Source Temporal Pulse Rate 73 Respiratory Rate 16 Blood Pressure 125/88 H Blood Pressure Mean 100 Pulse Ox 99 Oxygen Delivery Method Room Air Positive well nourished and well developed General Appearance ED: well developed HEENT Reports moist mucous membranes Eyes EOMs intact bilaterally Neck full ROM Chest Wall inspection of chest normal and palpation of chest normal Resp normal respiratory effort and clear to auscultation bilaterally Cardio regular rate and regular rhythm GI non-tender Extremity Extremity Narrative: Mild tenderness to the anterior right shoulder joint. No evidence of dislocation. Slow, purposeful range of motion of the right upper extremity. Good distal pulses. Strong hand grasp. Normal sensation on testing. Neuro oriented x3 and moves all extremities MDM MDM MDM Narrative Medical decision making narrative: Ice pack applied to the right shoulder. Ibuprofen given. Right shoulder x-rays will be obtained to evaluate for any acute bony injury. Radiography Diagnostic Testing: Radiology Impression Shoulder X-Ray 10/03/23 09:59 IMPRESSION: Normal x-ray examination of the shoulder. Electronically Signed: Cheikh Herron MD at 10:17 EDT , Treatment and Re-Evaluation Narrative: Right shoulder x-rays per my interpretation reveal no evidence of dislocation or acute bony injury. Radiology interpretation reviewed and agrees. Test results discussed with the patient. She will be given a prescription for ibuprofen. Return instructions given. Discharge Plan Triage Chief Complaint: Upper Extremity Injury ED Provider: Kelly Lopez Dx/Rx/DC Orders Clinical Impression: Sprain of right shoulder Instructions: ED Shoulder Sprain Prescriptions: New ibuprofen 600 mg tablet 600 mg PO Q8H PRN PRN (Reason: pain) Qty: 20 0RF No Action sulfamethoxazole-trimethoprim [Bactrim DS] 800-160 mg tablet 1 tab PO BID Qty: 20 0RF cephalexin 500 mg capsule 500 mg PO Q6 Qty: 40 0RF metoclopramide HCl [Reglan] 5 mg tablet 5 mg PO Q8H PRN PRN (Reason: headache) 7 Days Qty: 21 0RF Primary Care Provider: Nickie Scherer Referrals: Nickie Scherer MD [Primary Care Provider] - 1-2 Weeks Print Language: Iraqi Disposition Disposition: Home, Self Care
[2023-10-03] MEDS: Ibuprofen 600 MG Tablet PO (09:55)
--- NOTE | 2023-10-03 09:59 | RAD_ITS ---
STUDY: X-RAY - RIGHT SHOULDER REASON FOR EXAM: Female, 38 years old. Injury TECHNIQUE: 2 view(s) of the shoulder. COMPARISON: None. FINDINGS: Normal glenohumeral articulation. Normal acromioclavicular joint. Normal acromion. Normal humeral head and visualized proximal humerus. The soft tissue structures are unremarkable. Normal visualized pulmonary apex. RAD/Shoulder min 2 Views IMPRESSION: Normal x-ray examination of the shoulder. Electronically Signed: Cheikh Herron MD at 10:17 EDT ,
[2023-10-03 10:29] VITALS: BP 109/76; PULSE 82; RESP 15; TEMP 36.4; O2SAT 100
== END 2023-10-03 10:30 | disposition home or self-care (01) ==
PROVIDERS: Emergency Provider Emergency Medicine; PCP Internal Medicine; Visit Provider Emergency Medicine
DX: S43.401A Unspecified sprain of right shoulder joint, initial encounter (principal); F17.210 Nicotine dependence, cigarettes, uncomplicated; X58.XXXA Exposure to other specified factors, initial encounter
CPT/HCPCS: 73030; 99282

== ENCOUNTER 2023-10-20 10:57 | Emergency (ER) | payer MEDICAID, SELFPAY ==
[2023-10-20 10:58] VITALS: BP 126/92; PULSE 76; RESP 16; TEMP 36.5; O2SAT 96; BMI 33.7
--- NOTE | 2023-10-20 11:09 | EX.ED.VIS.HA ---
HPI <JOSE F Rivas - Last Filed: 10/20/23 12:57> History of Present Illness Chief Complaint: Headache Narrative Narrative: Patient presenting today with a migraine that started this morning. She reports that the headache is located to the front of her head, it was gradual in onset, she denies sudden onset headache. She has tried taking ibuprofen with minimal relief. She does report a history of migraines and states that this headache feels similar to her typical migraines. She reports photophobia. She denies fever, chills, neck pain, visual changes, nausea, and vomiting. She denies any head injury. PFSH <JOSE F Rivas - Last Filed: 10/20/23 12:57> [facility] Medical History Cholecystectomy planned GERD (gastroesophageal reflux disease) Mid back pain, chronic Home Medications ?Medication ?Instructions ?Recorded ?Last Taken ?Type cephalexin 500 mg capsule 500 mg PO Q6 #40 CAPSULES 02/20/23 Unknown Rx sulfamethoxazole 800 1 tab PO BID #20 tabs 02/20/23 Unknown Rx mg-trimethoprim 160 mg tablet (Bactrim DS) metoclopramide HCl 5 mg tablet 5 mg PO Q8H PRN PRN headache 7 04/07/23 Unknown Rx (Reglan) days #21 tabs ibuprofen 600 mg tablet 600 mg PO Q8H PRN PRN pain #20 10/03/23 Unknown Rx TABLETS rizatriptan 10 mg tablet (Maxalt) See Rx Instructions PO .COMPLEX #6 10/20/23 Unknown Rx tabs Allergy/AdvReac Type Severity Reaction Status Date / Time hydrocodone bitartrate (From Allergy Other Verified 10/20/23 11:00 Vicodin) propoxyphene napsylate (From Allergy Other Verified 10/20/23 11:00 Darvocet-N) Social History Smoking Status: Current every day smoker tobacco type: cigarettes ROS <JOSE F Rivas - Last Filed: 10/20/23 12:57> ROS ED Constitutional Constitutional ED: Denies chills or fever(s) Eyes Eyes: Reports photophobia; Denies change in vision Cardiovascular Cardiovascular: Denies chest pain Gastrointestinal Gastrointestinal: Denies abdominal pain, nausea or vomiting Musculoskeletal Musculoskeletal: Denies neck pain Integumentary Denies rash Neurologic Neurologic: Reports headache(s); Denies dizziness, paresthesias or weakness EXAM <JOSE F Rivas - Last Filed: 10/20/23 12:57> Physical Exam Const Vital Signs: 10/20/23 10:58 10/20/23 10:58 10/20/23 12:53 Temperature 97.7 F L 97.7 F L Temperature Source Temporal Pulse Rate 76 76 62 Respiratory Rate 16 16 14 Blood Pressure 126/92 H 126/92 H 121/65 H Blood Pressure Mean 103 103 83 Pulse Ox 96 96 99 Oxygen Delivery Method Room Air Room Air Positive well nourished, well developed and no apparent distress General Appearance ED: well developed HEENT Reports normocephalic and head/scalp atraumatic Mouth ED: Yes moist mucous membranes normal Eyes PERRL and EOMs intact bilaterally Neck full ROM, supple and no meningeal signs Chest Wall inspection of chest normal Resp normal respiratory effort and clear to auscultation bilaterally Cardio regular rate and regular rhythm GI soft to palpation, non-tender, non-distended and no masses Back/Spine normal ROM and normal to inspection Extremity normal to inspection and full ROM Neuro oriented x3, CN's II-XII intact bilaterally, moves all extremities, no focal motor deficits and no sensory deficits noted Sensorium / Orientation: awake and alert Psych mental status grossly normal and thought process normal Skin no rashes or lesions noted and no wounds <Dr. Magdi Almanzar DO - Last Filed: 10/20/23 12:45> Physical Exam Const Vital Signs: 10/20/23 10:58 10/20/23 10:58 10/20/23 12:53 Temperature 97.7 F L 97.7 F L Temperature Source Temporal Pulse Rate 76 76 62 Respiratory Rate 16 16 14 Blood Pressure 126/92 H 126/92 H 121/65 H Blood Pressure Mean 103 103 83 Pulse Ox 96 96 99 Oxygen Delivery Method Room Air Room Air MDM <JOSE F Rivas - Last Filed: 10/20/23 12:57> [facility] MDM Narrative Medical decision making narrative: Patient presenting today with a migraine that started this morning. This feels like her typical migraines, this does not sound consistent with subarachnoid hemorrhage. She has received migraine cocktails in the past but is not sure but they have consisted of but notes that she has had relief from Reglan. She was given IV fluids, Reglan, Benadryl, and Toradol. On reexamination she reported improvement of her symptoms and is requesting to go home. She is requesting a work note for today, this was given. She was given a prescription for Maxalt as this has helped her sister and mom in the past and she has taken it and it has given her relief of her headaches. PCP referral was given and patient discharged in stable condition. <Dr. Magdi Almanzar, DO - Last Filed: 10/20/23 12:45> MDM Treatment and Re-Evaluation Narrative: I have personally performed a face to face assessment of the patient and have reviewed the DANIEL Note. I performed a substantive portion of the visit including all aspects of the following. My rodriguez findings include: History is 38-year-old female presenting to the emergency room with frontal headache. Patient states she noticed it early this morning when she woke. Patient states that she will occasionally get migraines. There is a familial history. This feels very similar to her prior migraines. She states that she has tried Maxalt in the past with good relief and has had to come to the emergency room before. She currently does not have a prescription for Maxalt as she is in between primary care doctors. Patient denies any fevers. No neurologic deficits. She notes some mild light sensitivity photophobia. Exam is afebrile vital signs are stable. Well appearing female sitting comfortably in the bed. There are no obvious signs of meningitis. She has a normal neurologic examination NIH is 0. Mild light sensitivity. Medical Decison Making patient received migraine cocktail consisting of Reglan Benadryl and Toradol as well as IV fluids. She is improved on repeat examination. I will write for a few Maxalt to have on hand. Would recommend discussing migraines with her new primary care doctor when she establishes that care Discharge Plan Triage Chief Complaint: Headache ED Midlevel Provider: Xochilt Wen ED Provider: Magdi Almanzar Dx/Rx/DC Orders Clinical Impression: Migraine Instructions: ED, Migraine (Classical) Prescriptions: New rizatriptan [Maxalt] 10 mg tablet See Rx Instructions .ROUTE .COMPLEX Qty: 6 0RF Rx Instructions: take 1 tab at onset of headache; if no relief may repeat 1 tab after at least 2 hrs; max = 3 tabs/24 hr No Action sulfamethoxazole-trimethoprim [Bactrim DS] 800-160 mg tablet 1 tab PO BID Qty: 20 0RF cephalexin 500 mg capsule 500 mg PO Q6 Qty: 40 0RF metoclopramide HCl [Reglan] 5 mg tablet 5 mg PO Q8H PRN PRN (Reason: headache) 7 Days Qty: 21 0RF ibuprofen 600 mg tablet 600 mg PO Q8H PRN PRN (Reason: pain) Qty: 20 0RF Stand Alone Forms: ED Work / School Excuse Primary Care Provider: Nickie Scherer Referrals: Nickie Scherer MD [Primary Care Provider] - 5-7 Days Activity Restrictions/Additional Instructions: Follow-up with your PCP and return for any worsening of your symptoms. Print Language: Malay Disposition Disposition: Home, Self Care Discharge Date/Time: 10/20/23 12:53
[2023-10-20] MEDS: 0.9% Normal Saline (1000mL) 1,000 ML 999 ML IV (11:15)
[2023-10-20] MEDS: Ketorolac 15 MG/ML Vial IV (11:15)
[2023-10-20] MEDS: Metoclopramide 10 MG/2 ML Vial 5 MG IV (11:16)
[2023-10-20] MEDS: DiphenhydrAMINE 50 MG/ML Syringe 25 MG IV (11:16)
[2023-10-20 12:53] VITALS: BP 121/65; PULSE 62; RESP 14; TEMP 36.5; O2SAT 99
== END 2023-10-20 12:53 | disposition home or self-care (01) ==
PROVIDERS: Emergency Provider Emergency Medicine; PCP Internal Medicine; Visit Provider Emergency Medicine
DX: G43.909 Migraine, unspecified, not intractable, without status migrainosus (principal); F17.210 Nicotine dependence, cigarettes, uncomplicated
CPT/HCPCS: 96361; 96374; 96375; 96376; 99283; J7030; A4216

== ENCOUNTER 2023-11-27 13:12 | Emergency (ER) | payer MEDICAID, SELFPAY ==
[2023-11-27 13:14] VITALS: BP 121/80; PULSE 70; RESP 16; TEMP 36.2; O2SAT 98; BMI 52.6
--- NOTE | 2023-11-27 14:05 | EDS_ITS ---
HPI History of Present Illness Chief Complaint: Dental Informant: patient Onset/Context/Timing Onset: Days Context: Gradual Onset Timing: Continuous Quality: Throbbing Location: Left lower molars Worsened by: Nothing Relieved by: NSAIDs Associated Symptoms Assocated Symptom - Dental: Negative for fever, jaw swelling, face swelling, cold sensitivity or hot sensitivity Narrative Narrative: Patient presents with dental pain that has been waxing and waning since her dental extractions. Patient states she had an impacted wisdom tooth and molar removed. Patient states that she took her last ibuprofen tablet today. Patient states she is concerned that her suture did not fall out yet. Patient states that her oral surgeon told her that her sutures would come out in 3 to 5 days. Patient states that she can still see the suture in place. Patient denies any fevers or chills. Patient denies any difficulty swallowing. Patient denies any swelling of her jaw or face. Patient denies any hot or cold sensitivity. [facility] Medical History Cholecystectomy planned GERD (gastroesophageal reflux disease) Mid back pain, chronic Home Medications ?Medication ?Instructions ?Recorded ?Last Taken ?Type cephalexin 500 mg capsule 500 mg PO Q6 #40 CAPSULES 02/20/23 Unknown Rx sulfamethoxazole 800 1 tab PO BID #20 tabs 02/20/23 Unknown Rx mg-trimethoprim 160 mg tablet (Bactrim DS) metoclopramide HCl 5 mg tablet 5 mg PO Q8H PRN PRN headache 7 04/07/23 Unknown Rx (Reglan) days #21 tabs rizatriptan 10 mg tablet (Maxalt) See Rx Instructions PO .COMPLEX #6 10/20/23 Unknown Rx tabs ibuprofen 600 mg tablet 600 mg PO Q8H PRN PRN pain #20 11/27/23 Unknown Rx TABLETS Allergy/AdvReac Type Severity Reaction Status Date / Time hydrocodone bitartrate (From Allergy Other Verified 11/27/23 14:09 Vicodin) propoxyphene napsylate (From Allergy Other Verified 11/27/23 14:09 Darvocet-N) Social History Smoking Status: Current every day smoker tobacco type: cigarettes ROS ROS ED Constitutional Constitutional ED: Denies chills or fever(s) Eyes Eyes: Denies blurry vision or change in vision ENT ENT ED: Denies rhinorrhea or sore throat Cardiovascular Cardiovascular: Denies chest pain or palpitations Respiratory/Chest Respiratory/Chest: Denies cough or dyspnea Gastrointestinal Gastrointestinal: Denies nausea or vomiting Genitourinary Genitourinary ED: Denies dysuria or hematuria Musculoskeletal Musculoskeletal: Denies back pain or neck pain Integumentary Denies abscess or rash Neurologic Neurologic: Denies headache(s) or weakness Allergic/Immunologic Allergic/Immunologic ED: Denies mouth swelling or urticaria EXAM Physical Exam Const Vital Signs: 11/27/23 13:14 Temperature 97.2 F L Temperature Source Temporal Pulse Rate 70 Respiratory Rate 16 Blood Pressure 121/80 H Blood Pressure Mean 93 Pulse Ox 98 Oxygen Delivery Method Room Air Positive well nourished and well developed General Appearance ED: well developed and NAD HEENT HEENT Narrative: Oral mucosa is pink and moist. There is a healing incision over the left lower molar area. There is a Chromic Gut suture in place. There is no bleeding noted. There is no dry socket noted. There is some mild edema. Oropharynx is clear. Airway is patent. There is no sublingual edema or evidence of Alvaro's angina. Mouth ED: Yes oral and palatal mucosa normal Mouth: oral and palatal mucosa normal Teeth and Gingiva: gingiva abnormal Positive for gingival edema Neck supple and no JVD Neuro oriented x3, CN's II-XII intact bilaterally, moves all extremities, no focal motor deficits and no sensory deficits noted Sensorium / Orientation: alert Motor Exam: strength 5/5 throughout Psych mental status grossly normal MDM MDM MDM Narrative Medical decision making narrative: Patient was advised that her sutures are in fact dissolvable. Patient was advised that there is no need to remove the sutures at this time. Patient was instructed to continue her rinses as previously prescribed. Patient was given a prescription for ibuprofen. Patient was instructed to follow-up with her dentist and oral surgeon as scheduled. Patient understood and was agreeable with the plan. All questions were answered. Discharge Plan Triage Chief Complaint: Dental ED Provider: Claudio Adam Dx/Rx/DC Orders Clinical Impression: Odontalgia, Tobacco use disorder Instructions: ED Dental Pain Prescriptions: Continued ibuprofen 600 mg tablet 600 mg PO Q8H PRN PRN (Reason: pain) Qty: 20 0RF No Action sulfamethoxazole-trimethoprim [Bactrim DS] 800-160 mg tablet 1 tab PO BID Qty: 20 0RF cephalexin 500 mg capsule 500 mg PO Q6 Qty: 40 0RF metoclopramide HCl [Reglan] 5 mg tablet 5 mg PO Q8H PRN PRN (Reason: headache) 7 Days Qty: 21 0RF rizatriptan [Maxalt] 10 mg tablet See Rx Instructions .ROUTE .COMPLEX Qty: 6 0RF Rx Instructions: take 1 tab at onset of headache; if no relief may repeat 1 tab after at least 2 hrs; max = 3 tabs/24 hr Primary Care Provider: Nickie Scherer Referrals: Nickie Scherer MD [Primary Care Provider] - 1-2 Weeks Dentist,Your [STAFF PHYSICIAN] - 3-5 Days Print Language: Guatemalan Disposition Disposition: Home, Self Care
== END 2023-11-27 14:47 | disposition home or self-care (01) ==
PROVIDERS: Emergency Provider Emergency Medicine; PCP Internal Medicine; Visit Provider Emergency Medicine
DX: K08.89 Other specified disorders of teeth and supporting structures (principal); F17.210 Nicotine dependence, cigarettes, uncomplicated; K21.9 Gastro-esophageal reflux disease without esophagitis
CPT/HCPCS: 99282

== ENCOUNTER 2024-05-14 18:56 | Emergency (ER) | payer MEDICAID, SELFPAY ==
[2024-05-14 18:58] VITALS: BP 134/86; PULSE 80; RESP 16; TEMP 35.7; O2SAT 100; BMI 34.9
== END 2024-05-14 19:34 | disposition left against medical advice (07) ==
LOC: ED 19:35
PROVIDERS: PCP Internal Medicine
DX: Z53.21 Procedure and treatment not carried out due to patient leaving prior to being seen by health care provider (principal)

== ENCOUNTER 2024-07-14 11:44 | Emergency (ER) | payer MEDICAID, SELFPAY ==
[2024-07-14 11:44] VITALS: BP 119/83; PULSE 66; RESP 16; TEMP 36.7; O2SAT 100; BMI 35.2
--- NOTE | 2024-07-14 12:10 | ED.VIS.DENTA ---
HPI <Abeba Michel RN - Last Filed: 07/14/24 12:21> History of Present Illness Chief Complaint: Dental Detail of Chief Complaint: Left lower dental pain Informant: patient Onset/Context/Timing Onset: Weeks (2) Timing: Continuous Quality: Constant throbbing Current Severity: 8/10 Maximum Severity: 10/10 Worsened by: Eating Relieved by: NSAIDs (Minimal relief with ibuprofen) Associated Symptoms Assocated Symptom - Dental: Negative for fever, jaw swelling, face swelling, cold sensitivity or hot sensitivity Narrative Narrative: Patient is a 39-year-old female with past medical history significant for GERD, chronic back pain who presents to the ED for 2 weeks of left lower dental pain. Patient reports 6 months ago she had an impacted wisdom tooth removed. 2 weeks ago she felt a bone shard which she tried to remove. Since that time she has had a constant throbbing tooth ache. Denies fever, chills. No temperature sensitivity. However she does reports she is unable to eat on that side of her mouth due to pain. Pain is nonradiating. She reports she is going to call her dentist that pulled the tooth on Tuesday. She did have to leave work today due to the pain. She is requesting a work excuse as well. Patient denies dizziness, lightheadedness, chest pain, cough. Prior similar symptoms: Yes Recent Illness/Hospitalization: No PFSH <Abeba Michel RN - Last Filed: 07/14/24 12:21> PFSH Medical History Cholecystectomy planned GERD (gastroesophageal reflux disease) Mid back pain, chronic Home Medications ?Medication ?Instructions ?Recorded ?Last Taken ?Type cephalexin 500 mg capsule 500 mg PO Q6 #40 CAPSULES 02/20/23 Unknown Rx sulfamethoxazole 800 1 tab PO BID #20 tabs 02/20/23 Unknown Rx mg-trimethoprim 160 mg tablet (Bactrim DS) metoclopramide HCl 5 mg tablet 5 mg PO Q8H PRN PRN headache 7 04/07/23 Unknown Rx (Reglan) days #21 tabs rizatriptan 10 mg tablet (Maxalt) See Rx Instructions PO .COMPLEX #6 10/20/23 Unknown Rx tabs ibuprofen 600 mg tablet 600 mg PO Q8H PRN PRN pain #20 11/27/23 Unknown Rx TABLETS hydrocortisone 1 % topical cream 1 applic topical BID-QID PRN rash 05/10/24 Unknown Rx (Cortisone (hydrocortisone)) #28.4 grams ibuprofen 800 mg tablet 800 mg PO Q8H #21 tabs 07/14/24 Unknown Rx penicillin V potassium 500 mg 500 mg PO 4X/DAY #30 tabs 07/14/24 Unknown Rx tablet Allergy/AdvReac Type Severity Reaction Status Date / Time hydrocodone bitartrate (From Allergy Other Verified 07/14/24 11:44 Vicodin) propoxyphene napsylate (From Allergy Other Verified 07/14/24 11:44 Darvocet-N) Social History Smoking Status: Current every day smoker tobacco type: cigarettes ROS <Abeba Michel RN - Last Filed: 07/14/24 12:21> ROS ED ROS Narrative Denies fever, chills, lightheadedness, dizziness. Constitutional Constitutional ED: Denies chills, fever(s) or sweats ENT ENT ED: Denies ear pain, rhinorrhea or sore throat Cardiovascular Cardiovascular: Denies chest pain Respiratory/Chest Respiratory/Chest: Denies cough or dyspnea Gastrointestinal Gastrointestinal: Denies abdominal pain, nausea or vomiting Musculoskeletal Musculoskeletal: Denies arthralgias, back pain or myalgias Neurologic Neurologic: Denies headache(s) Psychiatric Psychiatric: Denies anxiety or depression Allergic/Immunologic Allergic/Immunologic ED: Denies mouth swelling or tongue swelling EXAM <Abeba Michel RN - Last Filed: 07/14/24 12:21> Physical Exam Narrative Exam Narrative: Patient sitting on ED cot, awake and alert. No acute distress. Pleasant and cooperative. Vital signs stable. Const Vital Signs: 07/14/24 11:44 Temperature 98.1 F Temperature Source Oral Pulse Rate 66 Respiratory Rate 16 Blood Pressure 119/83 H Blood Pressure Mean 95 Pulse Ox 100 Oxygen Delivery Method Room Air Positive well developed General Appearance ED: well developed and NAD HEENT HEENT Narrative: Mild edema at site of left wisdom tooth removal. No drainage or erythema noted. Negative for trauma Face and Sinus: sinuses nontender Mouth ED: Yes lips normal and Yes tongue normal Mouth: lips normal and tongue normal Teeth and Gingiva: gingiva abnormal Throat: posterior oropharynx normal Neck no lymphadenopathy, supple and no JVD General: Negative for anterior neck swelling or submandibular swelling Chest Wall inspection of chest normal and palpation of chest normal Resp normal respiratory effort, no retractions and clear to auscultation bilaterally Cardio regular rate, regular rhythm, S1 normal heart sound and S2 normal heart sound GI normal to inspection, nondistended, normoactive bowel sounds and non-tender Palpation: soft Extremity normal to inspection Neuro oriented x3, CN's II-XII intact bilaterally and moves all extremities Psych mental status grossly normal Skin no rashes or lesions noted Image ED - URI/Dental Diagram:  1. Mild edema, no erythema or drainage <Dr. Thai Avalos MD - Last Filed: 07/14/24 12:25> Physical Exam Const Vital Signs: 07/14/24 11:44 Temperature 98.1 F Temperature Source Oral Pulse Rate 66 Respiratory Rate 16 Blood Pressure 119/83 H Blood Pressure Mean 95 Pulse Ox 100 Oxygen Delivery Method Room Air MDM <Abeba Michel RN - Last Filed: 07/14/24 12:21> [facility] Narrative Medical decision making narrative: Patient afebrile. No imaging or labs warranted at this time. Patient will be discharged with ibuprofen and antibiotic. History & Record Review Additional record(s) reviewed:: Prior ED visit Differential Diagnosis Differential Diagnosis: Dental abscess Differential Diagnosis: Retained bone fragments Management Discussion w/another healthcare provider: Other (Dr. Avalos, ED provider) Treatment and Re-Evaluation Narrative: Patient will be discharged with prescription for ibuprofen and Pen-Vee K. She has been instructed to contact her dentist on Tuesday for follow-up. Patient will also be given a work excuse. Patient agreeable with plan. <Dr. Thai Avalos MD - Last Filed: 07/14/24 12:25> [facility] Narrative Medical decision making narrative: Patient afebrile. No imaging or labs warranted at this time. Patient will be discharged with ibuprofen and antibiotic. I have personally performed a face to face assessment of the patient and have reviewed the DANIEL Note. I performed a substantive portion of the visit including all aspects of the following. My rodriguez findings include: History is 39-year-old female male left lower dental pain for 1 to 2 weeks. Prior history of a molar extracted from that site about 6 months ago. Mild swelling. No fever. No trouble swallowing. Exam is [well-appearing 39-year-old female. Vital signs stable afebrile. H EENT exam moist mucous membranes. Multiple missing teeth. Left last molar has been extracted. Might be minimal swelling. Nothing to drain. No palpable abscess or fluctuance. No trouble swallowing or breathing. No jaw pain or facial swelling. No neck lymphadenopathy. Lungs clear. Heart regular rhythm. Abdomen soft. Moving all 4 extremities. Awake and alert.] Medical Decision Making [dental pain. Pen-Vee K 500 4 times daily. Ibuprofen and Tylenol for pain. Follow-up with her dentist.] Other additions or changes: [None] History & Record Review Discussion w/independent historian: Patient Discharge Plan Triage Chief Complaint: Dental ED Provider: Thai Avalos Dx/Rx/DC Orders Clinical Impression: Pain, dental Instructions: ED Dental Pain Prescriptions: New penicillin V potassium 500 mg tablet 500 mg PO 4X/DAY Qty: 30 0RF ibuprofen 800 mg tablet 800 mg PO Q8H Qty: 21 0RF No Action hydrocortisone [Cortisone (hydrocortisone)] 1 % cream 1 applic topical BID-QID PRN (Reason: rash) Qty: 28.4 0RF sulfamethoxazole-trimethoprim [Bactrim DS] 800-160 mg tablet 1 tab PO BID Qty: 20 0RF cephalexin 500 mg capsule 500 mg PO Q6 Qty: 40 0RF metoclopramide HCl [Reglan] 5 mg tablet 5 mg PO Q8H PRN PRN (Reason: headache) 7 Days Qty: 21 0RF rizatriptan [Maxalt] 10 mg tablet See Rx Instructions .ROUTE .COMPLEX Qty: 6 0RF Rx Instructions: take 1 tab at onset of headache; if no relief may repeat 1 tab after at least 2 hrs; max = 3 tabs/24 hr ibuprofen 600 mg tablet 600 mg PO Q8H PRN PRN (Reason: pain) Qty: 20 0RF Primary Care Provider: Nickie Scherer Referrals: Nickie Scherer MD [Primary Care Provider] - Activity Restrictions/Additional Instructions: Possibly early dental infection. Penicillin 4 times a day till gone. Ibuprofen and Tylenol for pain. Call and follow-up with your dentist to be reevaluated. Print Language: Ken[place] Disposition Disposition: Home, Self Care
[2024-07-14 12:36] VITALS: BP 119/83; PULSE 66; RESP 16; TEMP 36.7; O2SAT 100
== END 2024-07-14 12:37 | disposition home or self-care (01) ==
LOC: ED 12:32
PROVIDERS: Emergency Provider Emergency Medicine; PCP Internal Medicine; Visit Provider Emergency Medicine
DX: K08.89 Other specified disorders of teeth and supporting structures (principal); K21.9 Gastro-esophageal reflux disease without esophagitis; M54.9 Dorsalgia, unspecified; G89.29 Other chronic pain; F17.210 Nicotine dependence, cigarettes, uncomplicated; Z98.818 Other dental procedure status
CPT/HCPCS: 99282

== ENCOUNTER 2024-11-09 11:51 | Emergency (ER) | payer MEDICAID, SELFPAY ==
[2024-11-09 11:52] VITALS: BP 120/80; PULSE 66; RESP 18; TEMP 37; O2SAT 98; BMI 34.2
--- NOTE | 2024-11-09 12:51 | EX.ED.DYSGE1 ---
HPI History of Present Illness Chief Complaint: Nausea/Vomiting Narrative Narrative: Patient is a 39-year-old female past medical history of GERD, who presents to the emergency department the chief complaint of nausea and vomiting. Patient states that she was visiting a friend recently and noted that himself and his mother had COVID and notes that she was drinking after him. States that she was at work today and was feeling overall unwell with nausea vomiting and tiredness. States that she had to leave work and she came here as [facility] requires him to go to the emergency department not urgent care she states that she needs a work note or she will get written up. Patient states that she wants tested for COVID [facility] Medical History Cholecystectomy planned GERD (gastroesophageal reflux disease) Mid back pain, chronic Home Medications ?Medication ?Instructions ?Recorded ?Last Taken ?Type cephalexin 500 mg capsule 500 mg PO Q6 #40 CAPSULES 02/20/23 Unknown Rx sulfamethoxazole 800 1 tab PO BID #20 tabs 02/20/23 Unknown Rx mg-trimethoprim 160 mg tablet (Bactrim DS) metoclopramide HCl 5 mg tablet 5 mg PO Q8H PRN PRN headache 7 04/07/23 Unknown Rx (Reglan) days #21 tabs rizatriptan 10 mg tablet (Maxalt) See Rx Instructions PO .COMPLEX #6 10/20/23 Unknown Rx tabs ibuprofen 600 mg tablet 600 mg PO Q8H PRN PRN pain #20 11/27/23 Unknown Rx TABLETS hydrocortisone 1 % topical cream 1 applic topical BID-QID PRN rash 05/10/24 Unknown Rx (Cortisone (hydrocortisone)) #28.4 grams ibuprofen 800 mg tablet 800 mg PO Q8H #21 tabs 07/14/24 Unknown Rx penicillin V potassium 500 mg 500 mg PO 4X/DAY #30 tabs 07/14/24 Unknown Rx tablet dicyclomine 20 mg tablet 20 mg PO TID #30 tabs 11/09/24 Unknown Rx ondansetron 4 mg disintegrating 4 mg PO Q6H PRN nausea and 11/09/24 Unknown Rx tablet vomiting #20 tabs Allergy/AdvReac Type Severity Reaction Status Date / Time hydrocodone bitartrate (From Allergy Other Verified 11/09/24 11:53 Vicodin) propoxyphene napsylate (From Allergy Other Verified 11/09/24 11:53 Darvocet-N) Family History no significant family his Social History Smoking Status: Current every day smoker tobacco type: cigarettes ROS ROS ED ROS Narrative Constitutional: Denies any fevers or chills Cardiovascular: Denies chest pain Respiratory: Denies shortness of breath Abdomen: Complains of nausea vomiting denies abdominal pain : Denies any urinary symptoms Neurological: Denies numbness, weakness, tingling Skin: Denies any rashes or lesions EXAM Physical Exam Narrative Exam Narrative: General: Patient was lying in bed rest comfortably did not appear to be in acute distress Head: Atraumatic, normocephalic Eyes: PERRL bilaterally, EOMI bilateral, no conjunctival injection noted Neck: Soft, supple, trachea midline Cardiovascular: Regular rate and rhythm no murmurs gallops rubs noted Respiratory: Clear to auscultation bilaterally no rales rhonchi or wheezes noted Abdomen: Soft, nondistended, no tenderness palpation Extremities: +5/5 strength noted in the bilateral upper and lower extremities Neurological: Patient follow commands 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 On the differential diagnosis includes but not limited to viral gastroenteritis, UTI. Patient will be given Zofran and ODT and be reevaluated after the COVID test returns. Patient states that she needs to leave now and does not want to wait on her test results she was advised to follow-up on this. Patient given work note. Patient's urinalysis showed no evidence of infection and microscopic pending but based on the results thus far have low suspicion and she has no urinary symptoms test negative. Patient was given prescriptions for Bentyl and Zofran. She was encouraged to return with worsening symptoms or concerns. She is agreeable to plan all course concerns answered she was discharged home in stable condition. She is advised to follow-up with her doctor in outpatient setting. Lab Data Labs: Laboratory Results - last 24 hr 11/09/24 12:45 Urine Color Straw Urine Clarity Clear Urine pH 6.5 Ur Specific [place] 1.010 Urine Protein 15 H Urine Glucose (UA) Normal Urine Ketones Negative Urine Occult Blood Negative Urine Nitrite Negative Urine Bilirubin Negative Urine Urobilinogen Normal Ur Leukocyte Esterase Negative Urine Test Negative Discharge Plan Triage Chief Complaint: Nausea/Vomiting ED Provider: Levi Head Dx/Rx/DC Orders Clinical Impression: Nausea & vomiting, Viral gastroenteritis Prescriptions: New dicyclomine 20 mg tablet 20 mg PO TID Qty: 30 0RF ondansetron 4 mg tablet,disintegrating 4 mg PO Q6H PRN (Reason: nausea and vomiting) Qty: 20 0RF No Action hydrocortisone [Cortisone (hydrocortisone)] 1 % cream 1 applic topical BID-QID PRN (Reason: rash) Qty: 28.4 0RF sulfamethoxazole-trimethoprim [Bactrim DS] 800-160 mg tablet 1 tab PO BID Qty: 20 0RF cephalexin 500 mg capsule 500 mg PO Q6 Qty: 40 0RF metoclopramide HCl [Reglan] 5 mg tablet 5 mg PO Q8H PRN PRN (Reason: headache) 7 Days Qty: 21 0RF penicillin V potassium 500 mg tablet 500 mg PO 4X/DAY Qty: 30 0RF ibuprofen 800 mg tablet 800 mg PO Q8H Qty: 21 0RF rizatriptan [Maxalt] 10 mg tablet See Rx Instructions .ROUTE .COMPLEX Qty: 6 0RF Rx Instructions: take 1 tab at onset of headache; if no relief may repeat 1 tab after at least 2 hrs; max = 3 tabs/24 hr ibuprofen 600 mg tablet 600 mg PO Q8H PRN PRN (Reason: pain) Qty: 20 0RF Stand Alone Forms: ED Work / School Excuse Primary Care Provider: Nickie Scherer Referrals: Nickie Scherer MD [Primary Care Provider] - Activity Restrictions/Additional Instructions: Follow-up with your doctor in the outpatient setting. Take prescriptions as prescribed. Return with worsening symptoms or other concerns Print Language: Citizen Of [place] Disposition Disposition: Home, Self Care
[2024-11-09 12:53] LABS: Mucous, Urine 0 SEEN /hpf (<or=2+); Red Blood Cells-Urine 0 SEEN /hpf (0-5); Squamous Epithelial Cells - UA 0 SEEN /hpf (5-10)
[2024-11-09 13:01] LABS: Color, Urine Straw (Yellow); Glucose, Dipstick Normal (Normal); Ketone-Dipstick Negative (Negative); Leukocyte Esterase-Dipstick Negative /ul (Negative); Nitrite-Dipstick Negative (Negative); Occult Blood-Urine Negative /ul (Negative); Protein-Dipstick 15 mg/dl (Negative); Specific Gravity, Urine 1.010 (1.002-1.030); Urine Bilirubin Dipstick Negative (Negative)
[2024-11-09 13:05] LABS: Internal QC Validated? YES +Cl - CLEAR BKGD; Pregnancy, Urine Negative Negative; Record Kit Lot#,Urine Preg 962302
[2024-11-09 13:44] VITALS: BP 118/70; PULSE 61; RESP 18; TEMP 37; O2SAT 98
== END 2024-11-09 13:46 | disposition home or self-care (01) ==
PROVIDERS: Emergency Provider Emergency Medicine; PCP Internal Medicine; Visit Provider Emergency Medicine
DX: R11.2 Nausea with vomiting, unspecified (principal); A08.4 Viral intestinal infection, unspecified; Z11.52 Encounter for screening for COVID-19; K21.9 Gastro-esophageal reflux disease without esophagitis; F17.210 Nicotine dependence, cigarettes, uncomplicated
CPT/HCPCS: 81001; 81025; 87631; 99282